=== PATIENT | female | born 1950 | race Asian ===

== ENCOUNTER → 2020-04-25 | Outpatient (CLI) | payer MEDICARE, OTHER ==
[~2020-04-25] MED LIST: AMITRIPTYLINE H25 MG PO; ASPIR 8181 MG PO; BENADRYL 25MG C25 MG PO; CITALOPRAM HBR10 MG PO; COUMADIN5 MG PO; COUMADIN6 MG PO; CRESTOR 10 MG T10 MG PO; FUROSEMIDE40 MG PO; IMDUR ER TAB 3030 MG PO; KEPPRA500 MG PO; KLONOPIN TAB 00.5 MG PO; LOPRESSOR 50 MG50 MG PO; MICROZIDE12.5 MG PO; POTASSIUM CHLO20 ME1 PO; PREDNISONE10 MG PO; PROTONIX 40 MG40 M1 PO; VALSARTAN320 MG PO; VITAMIN D32000 UNIT PO; WARFARIN SODIUM6 MG PO
== END ==
LOC: EXRD 13:00
DX: E04.1 Nontoxic single thyroid nodule (principal)
CPT/HCPCS: 76536

== ENCOUNTER 2020-04-28 12:13 | Emergency (ER) | payer MEDICARE, OTHER ==
[2020-04-28 12:42] LABS: HEMOGLOBIN 11.4 gm/dl (12.3-15.3); RED BLOOD COUNT 4.39 M/UL (4.00-5.10); WHITE BLOOD COUNT 5.9 K/UL (4.5-11.0)
[2020-04-28 13:17] LABS: BUN/CREATININE RATIO 16 (0-10)
== END 2020-04-28 15:19 | disposition home or self-care (01) ==
LOC: ER1 12:13
PROVIDERS: Family Medicine
DX: R20.2 Paresthesia of skin (principal); R20.0 Anesthesia of skin; R47.9 Unspecified speech disturbances; R79.1 Abnormal coagulation profile; F41.9 Anxiety disorder, unspecified; I45.10 Unspecified right bundle-branch block; R29.700 NIHSS score 0; Z88.5 Allergy status to narcotic agent; Z91.041 Radiographic dye allergy status; Z79.01 Long term (current) use of anticoagulants
CPT/HCPCS: 70450; 80053; 81001; 82550; 82553; 82962; 83874; 84439; 84443; 84484; 85025; 85610; 93005; 99284

== ENCOUNTER → 2021-02-06 | Outpatient (CLI) | payer MEDICARE, OTHER | LOC: EMI 01-19 11:15 | DX: M48.07 Spinal stenosis, lumbosacral region (principal); M51.17 Intervertebral disc disorders with radiculopathy, lumbosacral region | CPT/HCPCS: 72148 ==

== ENCOUNTER 2021-05-23 12:30 | Inpatient (IN) | payer MEDICARE, OTHER ==
[~2021-05-23] VITALS: Ht 172.7 cm; Wt 92.0 kg
[~2021-05-23 12:30] MED LIST changes: -COUMADIN5 MG PO; -CRESTOR 10 MG T10 MG PO; +CRESTOR20 MG PO; +WARFARIN SODIUM3 MG PO
[2021-05-23 14:06] LABS: HEMOGLOBIN 13.2 gm/dl (12.3-15.3); RED BLOOD COUNT 4.64 M/UL (4.00-5.10); WHITE BLOOD COUNT 12.3 K/UL (4.5-11.0)
[2021-05-23 14:40] LABS: BUN/CREATININE RATIO 27 (0-10)
[2021-05-23] MEDS ORDERED: CARVEDILOL25 MG PO (17:07)
[2021-05-23] MEDS ORDERED: AMLODIPINE BESYL5 MG PO (17:08)
[2021-05-23] MEDS ORDERED: WARFARIN SODIUM4 MG PO (17:13)
--- NOTE | 2021-05-24 01:58 | NUR ---
PATIENT WAS BROUGHT TO THE FLOOR WITHOUT HEPARIN DRIP PROTOCOL PAPERS. CALLED ER TO SEE IF THEY STILL HAD THEM DOWN THERE. [employer] KNOWLES TOLD ME THAT SHE HAD NOT CHANGED THE SETTINGS ON THE PUMP, AND THAT SHE DIDN'T KNOW WHERE [employer] HAD PUT THE HEPARIN PAPERS. THE PUMP WAS SET FOR 16 ML/HR, BUT WAS ACTAULLY SUPPOSED TO BE ON 17/HR, THE PATIENT WEIGHS 92 KG, NOT 88 KG REPORTED BY ER. ALBERENE STONE SETTER, [employer] WORKER, AND PHARMACY WERE NOTIFIED. INSTRUCTED PER DR. BERKOWITZ TO ALLOW THE DRIP TO RUN AND WE WOULD REEVALUATE AT MIDNIGHT WHEN THE NEW PTT IS DRAWN. AT 2345 ON 05/23/21 I CALLED LAB TO REMIND THEM THAT THERE WAS A TIMED STUDY PTT THAT WAS TO BE DRAWN AT MIDNIGHT. AT 0100 ON 05/24/21, I CALLED LAB AGAIN AND TOLD THEM THAT I NEEDED THE PTT KAVON SO THAT I COULD ADJUST THE HEPARIN DRIP. AT 0145 AM I CALLED LAB AGAIN AND STATED THAT IT WAS VERY IMPORTANT THAT WE GET THE PTT DRAWN. ALBERENE STONE SETTER NOTIFIED OF SITUATION.
[2021-05-24 02:10] LABS: HEMOGLOBIN 12.9 gm/dl (12.3-15.3); RED BLOOD COUNT 4.54 M/UL (4.00-5.10); WHITE BLOOD COUNT 11.8 K/UL (4.5-11.0)
[2021-05-24 02:36] LABS: BUN/CREATININE RATIO 20 (0-10)
--- NOTE | 2021-05-25 00:46 | NUR ---
NOTIFIED DR. BERKOWITZ OF PTT GREATER THAN 250. HEPARIN DRIP HELD AT THIS TIME.
--- NOTE | 2021-05-25 04:36 | NUR ---
THIRD PTT CAME BACK GREATER THAN 250. NOTIFIED DR. BERKOWITZ. ALSO NOTIFIED HER THAT THE PATIENT IS STILL BLEEDING FROM HER LEFT AC WHERE AN 18 GAUGE IV WAS REMOVED YESTERDAY EVENING AT 6PM. THE BLEEDING IS CONTROLLED WITH 2X2 AND KOBAN WRAP, BUT WHEN THAT IS REMOVED SHE IS ACTIVELY BLEEDING. MOST RECENT VITAL SIGNS WERE ALSO REPORTED. NO NEW ORDERS AT THIS TIME. PTT WILL BE RECHECKED IN ANOTHER TWO HOURS. WILL REEVALUATE AND PASS THE EVENTS OF TONIGHTS SHIFT ALONG TO DAYSHIFT NURSE.
--- NOTE | 2021-05-25 04:58 | NUR ---
PTT FOR HEPARIN DRIP CAME BACK AT 0030 GREATER THAN 250, ASKED LAB TO RECHECK IT TO CONFIRM, TO WHICH IT ALSO CAME BACK GREATER THAN 250. THE NEXT TWO CHECKS WERE ALSO GREATER THAN 250. I CALLED LAB AND VOICED MY CONCERN ABOUT THE VALUE. INTEGRATION AIDE TOLD ME SHE WOULD TRY TO SEE IF IT WAS A PROBLEM WITH THE WAY IT WAS BEING ANALYZED. JUST RECEIVED A CALL AND WAS TOLD THAT THE MACHINE WAS NOT SET THE RIGHT WAY, AND THAT THE PATIENT'S PTT IS ACTUALLY 48. NOTIFIED DR. BERKOWITZ OF THE ERROR. WILL RESTART HEPARIN DRIP PER PROTOCOL.
== END 2021-05-25 21:02 | disposition home or self-care (01) | DRG 287 ==
LOC: ER1 12:30 → CDU 16:41 → M/S 16:41
PROVIDERS: Family Medicine; Physician Assistant Medical; ADMIT Internal Medicine
PROC: B24BZZZ Ultrasonography of Heart with Aorta (ICD-10-PCS; principal; 2021-05-24)
PROC: 4A023N7 Measurement of Cardiac Sampling and Pressure, Left Heart, Percutaneous Approach (ICD-10-PCS; 2021-05-25)
PROC: B2111ZZ Fluoroscopy of Multiple Coronary Arteries using Low Osmolar Contrast (ICD-10-PCS; 2021-05-25)
DX: R07.89 Other chest pain (principal); I69.354 Hemiplegia and hemiparesis following cerebral infarction affecting left non-dominant side; I45.2 Bifascicular block; R79.1 Abnormal coagulation profile; Z20.822 Contact with and (suspected) exposure to COVID-19; I10 Essential (primary) hypertension; I67.1 Cerebral aneurysm, nonruptured; G89.29 Other chronic pain; M54.2 Cervicalgia; K21.9 Gastro-esophageal reflux disease without esophagitis; D64.9 Anemia, unspecified; J44.9 Chronic obstructive pulmonary disease, unspecified; E78.5 Hyperlipidemia, unspecified; Z79.01 Long term (current) use of anticoagulants; Z95.2 Presence of prosthetic heart valve; I25.2 Old myocardial infarction; Z98.1 Arthrodesis status; Z90.49 Acquired absence of other specified parts of digestive tract; Z90.710 Acquired absence of both cervix and uterus; Z88.6 Allergy status to analgesic agent; Z91.041 Radiographic dye allergy status; Z82.3 Family history of stroke
CPT/HCPCS: ECHO; 36415; 71045; 78452; 80048; 80053; 82550; 82553; 83735; 83874; 84484; 85025; 85027; 85610; 85730; 93005; 93017; 93306; 96365; 96366; 96374; 96375; 99152; 99153; 99285; A9502; C1769; C1894; G0378; J1644; J2250; J2370; J2785; J2930; J3010; J7040; Q9965; U0002

== ENCOUNTER → 2021-05-28 | Outpatient (CLI) | payer MEDICARE, OTHER ==
[~2021-05-28] MED LIST changes: +AMLODIPINE BESYL5 MG PO; +CARVEDILOL25 MG PO; +WARFARIN SODIUM4 MG PO
== END ==
LOC: KOH-I 14:19
DX: R07.89 Other chest pain (principal)
CPT/HCPCS: 71045; 71111

== ENCOUNTER → 2021-10-01 | Outpatient (CLI) | payer MEDICARE, OTHER | LOC: KOH-I 16:02 | DX: M25.562 Pain in left knee (principal); M25.462 Effusion, left knee | CPT/HCPCS: 73562 ==

== ENCOUNTER → 2022-01-16 | Outpatient (CLI) | payer MEDICARE, OTHER | LOC: KOH-I 10:50 | DX: M79.671 Pain in right foot (principal); M19.071 Primary osteoarthritis, right ankle and foot | CPT/HCPCS: 73620 ==